=== PATIENT | female | born 2000 | race Caucasian/White ===

== ENCOUNTER 2019-05-07 15:08 | Emergency (ER) | payer OTHER ==
[~2019-05-07] VITALS: Ht 167.6 cm; Wt 72.6 kg
--- OUTSIDE RECORDS SUMMARY | 2019-05-07 15:10 | XMS REPORT ---
[facility] Address Unknown Phone Unavailable Care Team Providers Care Compressor Station Operator Name Role Phone Deepali GOYAL Unavailable Unavailable Payers Payer Name Policy Type Policy Number Effective Date Expiration Date Problems This patient has no known problems. Allergies, Adverse Reactions, Alerts Allergy Name Allergy Type Status Severity Reaction(s) Onset Date Inactive Date Treating Clinician Comments Penicillins DA Active U 2019-02-16 00:00:00 Penicillins DA Active U 2018-11-03 00:00:00 No Known Allergies DA Active U 2018-11-02 00:00:00 Medications This patient has no known medications. Encounters Start Date/Time End Date/Time Encounter Type Admission Type Attending [facility] Facility Care Department Encounter ID 2016-12-17 06:28:00 Inpatient 1 ROE GOYAL [facility] [id number] Results Test Description Test Time Test Comments Text Results Atomic Results Result Comments [facility] 2018-11-07 12:19:00 RUN DATE: 11/07/18 [place] - Lab PAGE 1 RUN TIME: 1219 Specimen Inquiry RUN USER: INTERFACE PATIENT: HEMAL GATES LOC: [place] U #: [id number] AGE/SX: 18/F ROOM: RE11/04/18REG DR: Nicolás Mills MD : 99 BED: DIS: STATUS: [facility] TLOC: SPEC #: [id number] RECD: 11/04/18 STATUS: NISHI RE #: [id number] ROXANNE: 11/04/18- DR: Nicolás Mills MD ENTERED: 11/04/18 SP TYPE: OTHR DR: ORDERED: GROSS PROCEDURES: GROSS (11/07/18945) TISSUES: PRODUCTS OF CONCEPTION, NOS CLINICAL HISTORY COLLECTION DATE: 11/04/18 MISSED AB FINAL DIAGNOSIS Products of conception, D C suction: IMMATURE CHORIONIC VILLI, DECIDUALIZED TISSUE AND SCANT MYOMETRIAL TISSUE CONSISTENT WITH PRODUCTS OF CONCEPTION NO ATYPICAL TROPHOBLASTIC PROLIFERATION OR MALIGNANCY IDENTIFIED FA/sm D 06262 MACROSCOPIC The specimen is received in formalin labeled with the patient's name, "products of conception" and consists of a clear plastic suction trap. The specimen consists of multiple fragments of red-pink and red-nelson spongy tissue measuring 14.0 x 7.0 by up to 1.7 cm in aggregate. No hydropic villi or discrete parts are identified. [employer] C[employer]ian tissue is submitted in a single cassette. GROSS PERFORMED AT [facility] [address] [place] [phone] CONTINUED ON NEXT PAGE ---RUN DATE: 11/07/18 [facility] PAGE 2 RUN TIME: 1219 Specimen Inquiry RUN USER: INTERFACE SPEC #: [id number] PATIENT: HEMAL GATES #[id number] (Continued) MICROSCOPIC All of the stains, including any controls performed, sandra barron appropriately. MICROSCOPIC PERFORMED AT [facility] [address] [place] [address] [phone] PERFORMING SITE Diagnosis performed at: [facility], [place] [address] [place] [address] Signed SIGNATURE ON FILE Santana Houston MD 11/07/18 1219 END OF REPORT HCG SERUM BETA 2018-11-03 13:18:00 HCG SERUM BETA (test code=HCG) 9826.0 mIU/mL 0-3 Interfering substances present in the serum of somepatients may cause a false-positive result in this assay.Questionable elevations in serum hCG should be confirmedwith a urine hCG. Suspected Trophoblastic Neoplasms shouldnot be diagnosed based on serun hCG/beta hCG alone. Theymust be confirmed by clinical history and tissue diagnosis.INTERPRETATION:B-HCG LEVELS <5 SHOULD BE CONSIDERED "NEGATIVE." *WHEN BODERLINE RESULTS ARE ENCOUNTERED,PATIENT SAMPLESSHOULD BE REDRAWN 48 HOURS. 0-1 WEEKS AFTER CONCEPTION 5-50 MIU/ML1-2 WEEKS AFTER CONCEPTION 50-500 MIU/ML2-3 WEEKS AFTER CONCEPTION 100 -5,000 MIU/ML3-4 WEEKS AFTER CONCEPTION 500-10,000 MIU/ML4-5 WEEKS AFTER CONCEPTION 1000 -50,000 MIU/ML5-6 WEEKS AFTER CONCEPTION 10,000-100,000 MIU/ML6-8 WEEKS AFTER CONCEPTION 15,000- 200,000 MIU/ML2-3 MONTHS AFTER CONCEPTION 10,000-100,000 MIU/ML URINALYSIS [id number] 12:34:00* Test Item Value Reference Range Comments UA COLOR (test code=COLU) YELLOW YELLOW UA APPEARANCE (test code=APPU) Cloudy CLEAR UA GLUCOSE DIPSTICK (test code=DGLUU) NEGATIVE mg/dL NEGATIVE UA BILIRUBIN DIPSTICK (test code=BILU) NEGATIVE mg/dL NEGATIVE UA KETONE DIPSTICK (test code=KETU) NEGATIVE mg/dL NEGATIVE UA SPECIFIC GRAVITY (test code=SGU) 1.022 1.001-1.035 UA BLOOD DIPSTICK (test code=MIRTA) Negative mg/dL NEGATIVE UA PH DIPSTICK (test code=PATRICE) 6.5 5.0-8.0 UA PROTEIN DIPSTICK (test code=PROU) 20 (Trace) mg/dL NEGATIVE UA UROBILINIOGEN DIPSTICK (test code=URO) Normal mg/dL NEGATIVE UA NITRITE DIPSTICK (test code=RAMA) NEGATIVE NEGATIVE UA LEUKOCYTE ESTERASE W REFLEX (test code=LEUUR) 500 Elsa/uL (3+) Elsa/uL NEGATIVE UA WBC (test code=WBCU) 11-20 per HPF 0-5 UA RBC (test code=RBCU) 3-5 per HPF 0-5 UA EPITHELIAL CELLS (test code=EPIU) Many (>10/hpf) per HPF Few UA BACTERIA (test code=BACU) FEW per HPF NONE UA MUCUS (test code=MUCU) FEW per LPF NONE-FEW URINALYSIS [id number] 12:33:00* Test Item Value Reference Range Comments UA COLOR (test code=COLU) YELLOW YELLOW UA APPEARANCE (test code=APPU) Cloudy CLEAR UA GLUCOSE DIPSTICK (test code=DGLUU) NEGATIVE mg/dL NEGATIVE UA BILIRUBIN DIPSTICK (test code=BILU) NEGATIVE mg/dL NEGATIVE UA KETONE DIPSTICK (test code=KETU) NEGATIVE mg/dL NEGATIVE UA SPECIFIC GRAVITY (test code=SGU) 1.022 1.001-1.035 UA BLOOD DIPSTICK (test code=MIRTA) Negative mg/dL NEGATIVE UA PH DIPSTICK (test code=PATRICE) 6.5 5.0-8.0 UA PROTEIN DIPSTICK (test code=PROU) 20 (Trace) mg/dL NEGATIVE UA UROBILINIOGEN DIPSTICK (test code=URO) Normal mg/dL NEGATIVE UA NITRITE DIPSTICK (test code=RAMA) NEGATIVE NEGATIVE UA LEUKOCYTE ESTERASE W REFLEX (test code=LEUUR) 500 Elsa/uL (3+) Elsa/uL NEGATIVE UA WBC (test code=WBCU) per HPF 0-5 UA RBC (test code=RBCU) per HPF 0-5 UA EPITHELIAL CELLS (test code=EPIU) per HPF Few UA BACTERIA (test code=BACU) per HPF NONE URINALYSIS [id number] 12:33:00* Test Item Value Reference Range Comments UA COLOR (test code=COLU) YELLOW YELLOW UA APPEARANCE (test code=APPU) Cloudy CLEAR UA GLUCOSE DIPSTICK (test code=DGLUU) NEGATIVE mg/dL NEGATIVE UA BILIRUBIN DIPSTICK (test code=BILU) NEGATIVE mg/dL NEGATIVE UA KETONE DIPSTICK (test code=KETU) NEGATIVE mg/dL NEGATIVE UA SPECIFIC GRAVITY (test code=SGU) 1.022 1.001-1.035 UA BLOOD DIPSTICK (test code=MIRTA) Negative mg/dL NEGATIVE UA PH DIPSTICK (test code=PATRICE) 6.5 5.0-8.0 UA PROTEIN DIPSTICK (test code=PROU) 20 (Trace) mg/dL NEGATIVE UA UROBILINIOGEN DIPSTICK (test code=URO) Normal mg/dL NEGATIVE UA NITRITE DIPSTICK (test code=RAMA) NEGATIVE NEGATIVE UA LEUKOCYTE ESTERASE W REFLEX (test code=LEUUR) 500 Elsa/uL (3+) Elsa/uL NEGATIVE UA WBC (test code=WBCU) per HPF 0-5 UA RBC (test code=RBCU) per HPF 0-5 UA EPITHELIAL CELLS (test code=EPIU) per HPF Few UA BACTERIA (test code=BACU) per HPF NONE CBC W/AUTO [id number] 12:29:00* Test Item Value Reference Range Comments WHITE BLOOD CELL (test code=WBC) 6.6 K/mm3 4.5-12.5 RED BLOOD CELL (test code=RBC) 5.18 mill/mm3 3.7-5.2 HEMOGLOBIN (test code=HGB) 12.6 gram/dL 11.5-15.5 HEMATOCRIT (test code=HCT) 39.8 % 36.0-46.0 MEAN CELL VOLUME (test code=MCV) 76.8 fL 80-98 MEAN CELL HGB (test code=MCH) 24.3 picogram 27.0-33.0 MEAN CELL HGB CONCETRATION (test code=MCHC) 31.7 gram/dL 33.0-36.0 RED CELL DISTRIBUTION WIDTH (test code=RDW) 15.7 % 11.6-16.2 RED CELL DISTRIBUTION WIDTH SD (test code=RDW-SD) 43.7 fL 37.0-51.0 PLATELET COUNT (test code=PLT) 162 K/mm3 150-450 MEAN PLATELET VOLUME (test code=MPV) 10.2 fL 6.7-11.0 NEUTROPHIL % (test code=NT%) 70.3 % 39.0-69.0 IMMATURE GRANULOCYTE % (test code=IG%) 1.5 % 0.0-5.0 LYMPHOCYTE % (test code=LY%) 16.0 % 25.0-55.0 MONOCYTE % (test code=MO%) 11.9 % 0.0-10.0 EOSINOPHIL % (test code=EO%) 0.0 % 0.0-5.0 BASOPHIL % (test code=BA%) 0.3 % 0.0-1.0 NUCLEATED RBC % (test code=NRBC%) 0.0 % 0-0 NEUTROPHIL # (test code=NT#) 4.61 K/mm3 1.8-7.7 IMMATURE GRANULOCYTE # (test code=IG#) 0.10 x10 3/uL 0-0.03 LYMPHOCYTE # (test code=LY#) 1.05 K/mm3 1.0-5.0 MONOCYTE # (test code=MO#) 0.78 K/mm3 0-0.8 EOSINOPHIL # (test code=EO#) 0.00 K/mm3 0.0-0.5 BASOPHIL # (test code=BA#) 0.02 K/mm3 0.0-0.2 NUCLEATED RBC # (test code=NRBC#) 0.00 K/mm3 0.0-0.1 MANUAL DIFF REQUIRED (test code=MDIFF) NO CBC W/AUTO [id number] 12:26:00* Test Item Value Reference Range Comments WHITE BLOOD CELL (test code=WBC) K/mm3 4.5-12.5 RED BLOOD CELL (test code=RBC) mill/mm3 3.7-5.2 HEMOGLOBIN (test code=HGB) 12.6 gram/dL 11.5-15.5 HEMATOCRIT (test code=HCT) 39.8 % 36.0-46.0 MEAN CELL VOLUME (test code=MCV) fL 80-98 MEAN CELL HGB (test code=MCH) picogram 27.0-33.0 MEAN CELL HGB CONCETRATION (test code=MCHC) gram/dL 33.0-36.0 RED CELL DISTRIBUTION WIDTH (test code=RDW) % 11.6-16.2 RED CELL DISTRIBUTION WIDTH SD (test code=RDW-SD) fL 37.0-51.0 PLATELET COUNT (test code=PLT) K/mm3 150-450 MEAN PLATELET VOLUME (test code=MPV) fL 6.7-11.0 NEUTROPHIL % (test code=NT%) % 39.0-69.0 IMMATURE GRANULOCYTE % (test code=IG%) % 0.0-5.0 LYMPHOCYTE % (test code=LY%) % 25.0-55.0 MONOCYTE % (test code=MO%) % 0.0-10.0 EOSINOPHIL % (test code=EO%) % 0.0-5.0 BASOPHIL % (test code=BA%) % 0.0-1.0 NEUTROPHIL # (test code=NT#) K/mm3 1.8-7.7 LYMPHOCYTE # (test code=LY#) K/mm3 1.0-5.0 MONOCYTE # (test code=MO#) K/mm3 0-0.8 EOSINOPHIL # (test code=EO#) K/mm3 0.0-0.5 BASOPHIL # (test code=BA#) K/mm3 0.0-0.2 - DUP AB/PEL/SC [id number] 19:22:00 Name: HEMAL GATES [facility] : 2000 Age/S: 18 / F [address] [facility] Unit #: [id number] Loc: [place] [address] Phys: Cailin Gomez MD Acct: [id number] Dis Date: Status: REG ER PHONE #: [phone] Exam Date: 11/02/2018 191 FAX #: [phone] Reason: PAIN FEVER EXAMS: CPT CODE: [id number] DUP AB/PEL/SC COMP 82950 EXAM: First trimester ultrasound, transvaginal ultrasound and duplex sonography; INFORMATION: Pelvic pain, fever; TECHNIQUE AND FINDINGS: Transabdominal and transvaginal grayscale imaging was combined with color Doppler sonography and spectral analysis. The uterus measures 11.7 x 8.1 x 8.3 cm. It contains a gestational sac with a mean diameter of 4 cm. The crown-rump length of an embryo is 2 cm. This corresponds with a sonographic gestational age of 9 weeks and 0 days. However, no cardiac activity is seen. There is a small subchorionic bleed, measuring 8 x 4 x 7 mm. Both ovaries are of normal size and shape and with normal flow pattern on Doppler exam. The right ovary measures 3 x 1.8 x 1.7 cm. The left ovary measures 2.6 x 1.5 x 1.8 cm. IMPRESSION: 1. Absence of cardiac activity indicates demise of an early intrauterine with a gestational age of 9 weeks. 2. No adnexal lesions. at 1922 Reported and signed by: Karel Huerta M.D. CC: Nicolás Mills MD; Cailin Gomez MD Technologist: Toña Joyner RDMS Trnutb Date/Time: 11/02/2018 (1921) t.[email or web address] Orig Print D/T: S: 11/02/2018 (1924) Probe: PAGE 1 Signed Report - US PREG UT [id number] 19:22:00 Name: HEMAL GATES [facility] : 2000 Age/S: 18 / F [address] [facility] Unit #: [id number] Loc: [place] [address] Phys: Cailin Gomez MD Acct: [id number] Dis Date: Status: REG ER PHONE #: [phone] Exam Date: 11/02/20181917 FAX #: [phone] Reason: PAIN FEVER EXAMS: CPT CODE: [id number] US PREG UT TRANSVAGINAL 41479 EXAM: First trimester ultrasound, transvaginal ultrasound and duplex sonography; INFORMATION: Pelvic pain, fever; TECHNIQUE AND FINDINGS: Transabdominal and transvaginal grayscale imaging was combined with color Doppler sonography and spectral analysis. The uterus measures 11.7 x 8.1 x 8.3 cm. It contains a gestational sac with a mean diameter of 4 cm. The crown-rump length of an embryo is 2 cm. This corresponds with a sonographic gestational age of 9 weeks and 0 days. However, no cardiac activity is seen. There is a small subchorionic bleed, measuring 8 x 4 x 7 mm. Both ovaries are of normal size and shape and with normal flow pattern on Doppler exam. The right ovary measures 3 x 1.8 x 1.7 cm. The left ovary measures 2.6 x 1.5 x 1.8 cm. IMPRESSION: 1. Absence of cardiac activity indicates demise of an early intrauterine with a gestational age of 9 weeks. 2. No adnexal lesions. at 1922 Reported and signed by: Karel Huerta M.D. CC: Nicolás Mills MD; Cailin Gomez MD Technologist: Toña Joyner RDMS Trnutb Date/Time: 11/02/2018 (1921) [email or web address] Orig Print D/T: S: 11/02/2018 (1924) Probe: [id number] PAGE 1 Signed Report - US PREG 1ST TRIMTR 2018-11-02 19:22:00 Name: HEMAL GATES [facility] : 2000 Age/S: 18 / F [address] [facility] Unit #: [id number] Loc: [place] [address] Phys: Cailin Gomez MD Acct: [id number] Dis Date: Status: REG ER PHONE #: [phone] Exam Date: 11/02/20181917 FAX #: [phone] Reason: pelvis pain, fever EXAMS: CPT CODE: [id number] US PREG 1ST TRIMTR 13623 EXAM: First trimester ultrasound, transvaginal ultrasound and duplex sonography; INFORMATION: Pelvic pain, fever; TECHNIQUE AND FINDINGS: Transabdominal and transvaginal grayscale imaging was combined with color Doppler sonography and spectral analysis. The uterus measures 11.7 x 8.1 x 8.3 cm. It contains a gestational sac with a mean diameter of 4 cm. The crown-rump length of an embryo is 2 cm. This corresponds with a sonographic gestational age of 9 weeks and 0 days. However, no cardiac activity is seen. There is a small subchorionic bleed, measuring 8 x 4 x 7 mm. Both ovaries are of normal size and shape and with normal flow pattern on Doppler exam. The right ovary measures 3 x 1.8 x 1.7 cm. The left ovary measures 2.6 x 1.5 x 1.8 cm. IMPRESSION: 1. Absence of cardiac activity indicates demise of an early intrauterine with a gestational age of 9 weeks. 2. No adnexal lesions. at 1922 Reported and signed by: Karel Huerta M.D. CC: Cailin Gomez MD Technologist: Toña Joyner RDMS Trnutb Date/Time: 11/02/2018 (1921) [email or web address] Orig Print D/T: S: 11/02/2018 (1924) Probe: PAGE 1 Signed Report - XR CHEST 1 V 2018-11-02 19:14:00 FAX: Cailin García [phone] Ola: St: REG Name: HEMAL YEN [facility] : [birth year] Age/S: 18/F [address] [facility] Unit #: [id number] Loc: [place] [address] Phys: Cailin Gomez MD Acct: [id number] Dis Date: Status: REG ER PHONE #: [phone] Exam Date: 11/02/2018 183 FAX #: [phone] Reason: CODE SEPSIS EXAMS: CPT CODE: [id number] XR CHEST 1 V 80116 EXAM: Chest X-ray, 1 view; CLINICAL HISTORY: Fever, code sepsis; FINDINGS: The lungs are clear, no infiltrates, no edema; no effusions; no pneumothorax; normal cardiomediastinal silhouette. IMPRESSION: Normal chest x-ray. at 191 Reported and signed by: Karel Huerta M.D. CC: Cailin Gomez MD Tech nologist: Juanito Tovar RT(R) Trnscrd Date/Ti me/By: 11/02/2018 (1913) : By: JenniferGRW Orig Print D/T: S: 11/02/2018 (1916) PAGE 1 Signed Report HCG SERUM [id number] 18:38:00* Test Item Value Reference Range Comments HCG SERUM BETA (test code=HCG) 77278.0 mIU/mL 0-3 Interfering substances present in the serum of somepatients may cause a false-positive result in this assay.Questionable elevations in serum hCG should be confirmedwith a urine hCG. Suspected Trophoblastic Neoplasms shouldnot be diagnosed based on serun hCG/beta hCG alone. Theymust be confirmed by clinical history and tissue diagnosis.INTERPRETATION:B-HCG LEVELS <5 SHOULD BE CONSIDERED "NEGATIVE." *WHEN BODERLINE RESULTS ARE ENCOUNTERED,PATIENT SAMPLESSHOULD BE REDRAWN 48 HOURS. 0-1 WEEKS AFTER CONCEPTION 5-50 MIU/ML1-2 WEEKS AFTER CONCEPTION 50-500 MIU/ML2-3 WEEKS AFTER CONCEPTION 100 -5,000 MIU/ML3-4 WEEKS AFTER CONCEPTION 500-10,000 MIU/ML4-5 WEEKS AFTER CONCEPTION 1000 -50,000 MIU/ML5-6 WEEKS AFTER CONCEPTION 10,000-100,000 MIU/ML6-8 WEEKS AFTER CONCEPTION 15,000- 200,000 MIU/ML2-3 MONTHS AFTER CONCEPTION 10,000-100,000 MIU/ML BASIC METABOLIC [id number] 18:28:00* Test Item Value Reference Range Comments SODIUM (test code=NA) 136 mmol/L 136-145 POTASSIUM (test code=K) 3.3 mmol/L 3.5-5.1 CHLORIDE (test code=CL) 105.0 mmol/L 98-107 CARBON DIOXIDE (test code=CO2) 21.0 mmol/L 21-32 ANION GAP (test code=GAP) 13.3 10-20 GLUCOSE (test code=GLU) 95 mg/dL 74-106 BLOOD UREA NITROGEN (test code=BUN) 6 mg/dL 7-18 GLOMERULAR FILTRATION RATE (test code=GFR) > 60 mL/min >=60 Estimated GFR by using Modified MDRD formula.Chronic kidney disease is defined as either kidney damageor GFR <60 mL/min/1.73 m2 for >3 months. CREATININE (test code=CREAT) 0.70 mg/dL 0.55-1.02 Note change in reference range due to change in reagent. BUN/CREATININE RATIO (test code=BUN/CREA) 9.0 10-20 CALCIUM (test code=CA) 8.4 mg/dL 8.5-10.1 HEPATIC FUNCTION [id number] 18:28:00* Test Item Value Reference Range Comments TOTAL PROTEIN (test code=PROT) 7.1 gram/dL 6.4-8.2 ALBUMIN (test code=ALB) 3.7 g/dL 3.4-5.0 GLOBULIN (test code=GLOB) 3.4 gram/dL 2.7-4.2 ALBUMIN/GLOBULIN RATIO (test code=A/G) 1.1 0.75-1.50 BILIRUBIN TOTAL (test code=BILT) 0.40 mg/dL 0.0-1.0 BILIRUBIN DIRECT (test code=BILD) 0.11 mg/dL 0.0-0.20 SGOT/AST (test code=AST) 12 IUnit/L 15-37 SGPT/ALT (test code=ALT) 17 IUnit/L 12-78 ALKALINE PHOSPHATASE TOTAL (test code=ALKP) 60 IUnit/L 37-107 [id number] 18:28:00* Test Item Value Reference Range Comments LIPASE (test code=LIP) 49 U/L 73.0-393.0 [id number] 18:28:00* Test Item Value Reference Range Comments TROPONIN-I (test code=TROPI) <0.015 ng/mL 0-0.045 BASIC METABOLIC [id number] 18:21:00* Test Item Value Reference Range Comments SODIUM (test code=NA) 136 mmol/L 136-145 POTASSIUM (test code=K) 3.3 mmol/L 3.5-5.1 CHLORIDE (test code=CL) 105.0 mmol/L 98-107 CARBON DIOXIDE (test code=CO2) mmol/L 21-32 ANION GAP (test code=GAP) 10-20 GLUCOSE (test code=GLU) mg/dL 74-106 BLOOD UREA NITROGEN (test code=BUN) mg/dL 7-18 GLOMERULAR FILTRATION RATE (test code=GFR) mL/min >=60 CREATININE (test code=CREAT) mg/dL 0.55-1.02 BUN/CREATININE RATIO (test code=BUN/CREA) 10-20 CALCIUM (test code=CA) mg/dL 8.5-10.1 HEPATIC FUNCTION [id number] 18:21:00* Test Item Value Reference Range Comments TOTAL PROTEIN (test code=PROT) gram/dL 6.4-8.2 ALBUMIN (test code=ALB) g/dL 3.4-5.0 GLOBULIN (test code=GLOB) gram/dL 2.7-4.2 ALBUMIN/GLOBULIN RATIO (test code=A/G) 0.75-1.50 BILIRUBIN TOTAL (test code=BILT) mg/dL 0.0-1.0 BILIRUBIN DIRECT (test code=BILD) mg/dL 0.0-0.20 SGOT/AST (test code=AST) IUnit/L 15-37 SGPT/ALT (test code=ALT) IUnit/L 12-78 ALKALINE PHOSPHATASE TOTAL (test code=ALKP) IUnit/L 37-107 [id number] 18:21:00* Test Item Value Reference Range Comments LIPASE (test code=LIP) U/L 73.0-393.0 [id number] 18:21:00* Test Item Value Reference Range Comments TROPONIN-I (test code=TROPI) ng/mL 0-0.045 LACTIC [id number] 18:21:00* Test Item Value Reference Range Comments LACTIC ACID (test code=LACT) 0.9 mmol/L 0.4-1.9 URINALYSIS [id number] 18:07:00* Test Item Value Reference Range Comments UA COLOR (test code=COLU) Light-Yellow YELLOW UA APPEARANCE (test code=APPU) CLEAR CLEAR UA GLUCOSE DIPSTICK (test code=DGLUU) NEGATIVE mg/dL NEGATIVE UA BILIRUBIN DIPSTICK (test code=BILU) NEGATIVE mg/dL NEGATIVE UA KETONE DIPSTICK (test code=KETU) 10 (1+) mg/dL NEGATIVE UA SPECIFIC GRAVITY (test code=SGU) 1.017 1.001-1.035 UA BLOOD DIPSTICK (test code=MIRTA) Negative mg/dL NEGATIVE UA PH DIPSTICK (test code=PATRICE) 7.0 5.0-8.0 UA PROTEIN DIPSTICK (test code=PROU) NEGATIVE mg/dL NEGATIVE UA UROBILINIOGEN DIPSTICK (test code=URO) Normal mg/dL NEGATIVE UA NITRITE DIPSTICK (test code=RAMA) NEGATIVE NEGATIVE UA LEUKOCYTE ESTERASE W REFLEX (test code=LEUUR) 500 Elsa/uL (3+) Elsa/uL NEGATIVE UA WBC (test code=WBCU) 11-20 per HPF 0-5 UA RBC (test code=RBCU) 0-2 #/HPF 0-5 UA EPITHELIAL CELLS (test code=EPIU) FEW per HPF FEW UA BACTERIA (test code=BACU) FEW #/HPF NONE UA MUCUS (test code=MUCU) FEW #/LPF FEW Urine Source? Clean CatchCBC W/AUTO [id number] 18:05:00* Test Item Value Reference Range Comments WHITE BLOOD CELL (test code=WBC) 6.1 K/mm3 4.5-12.5 RED BLOOD CELL (test code=RBC) 5.00 mill/mm3 3.7-5.2 HEMOGLOBIN (test code=HGB) 12.3 gram/dL 11.5-15.5 HEMATOCRIT (test code=HCT) 38.2 % 36.0-46.0 MEAN CELL VOLUME (test code=MCV) 76.4 fL 80-98 MEAN CELL HGB (test code=MCH) 24.6 picogram 27.0-33.0 MEAN CELL HGB CONCETRATION (test code=MCHC) 32.2 gram/dL 33.0-36.0 RED CELL DISTRIBUTION WIDTH (test code=RDW) 15.5 % 11.6-16.2 RED CELL DISTRIBUTION WIDTH SD (test code=RDW-SD) 42.4 fL 37.0-51.0 PLATELET COUNT (test code=PLT) 157 K/mm3 150-450 MEAN PLATELET VOLUME (test code=MPV) 10.3 fL 6.7-11.0 NEUTROPHIL % (test code=NT%) 80.5 % 39.0-69.0 IMMATURE GRANULOCYTE % (test code=IG%) 1.0 % 0.0-5.0 LYMPHOCYTE % (test code=LY%) 9.1 % 25.0-55.0 MONOCYTE % (test code=MO%) 9.0 % 0.0-10.0 EOSINOPHIL % (test code=EO%) 0.2 % 0.0-5.0 BASOPHIL % (test code=BA%) 0.2 % 0.0-1.0 NUCLEATED RBC % (test code=NRBC%) 0.0 % 0-0 NEUTROPHIL # (test code=NT#) 4.95 K/mm3 1.8-7.7 IMMATURE GRANULOCYTE # (test code=IG#) 0.06 x10 3/uL 0-0.03 LYMPHOCYTE # (test code=LY#) 0.56 K/mm3 1.0-5.0 MONOCYTE # (test code=MO#) 0.55 K/mm3 0-0.8 EOSINOPHIL # (test code=EO#) 0.01 K/mm3 0.0-0.5 BASOPHIL # (test code=BA#) 0.01 K/mm3 0.0-0.2 NUCLEATED RBC # (test code=NRBC#) 0.00 K/mm3 0.0-0.1 URINALYSIS [id number] 18:05:00* Test Item Value Reference Range Comments UA COLOR (test code=COLU) Light-Yellow YELLOW UA APPEARANCE (test code=APPU) CLEAR CLEAR UA GLUCOSE DIPSTICK (test code=DGLUU) NEGATIVE mg/dL NEGATIVE UA BILIRUBIN DIPSTICK (test code=BILU) NEGATIVE mg/dL NEGATIVE UA KETONE DIPSTICK (test code=KETU) 10 (1+) mg/dL NEGATIVE UA SPECIFIC GRAVITY (test code=SGU) 1.017 1.001-1.035 UA BLOOD DIPSTICK (test code=MIRTA) Negative mg/dL NEGATIVE UA PH DIPSTICK (test code=PATRICE) 7.0 5.0-8.0 UA PROTEIN DIPSTICK (test code=PROU) NEGATIVE mg/dL NEGATIVE UA UROBILINIOGEN DIPSTICK (test code=URO) Normal mg/dL NEGATIVE UA NITRITE DIPSTICK (test code=RAMA) NEGATIVE NEGATIVE UA LEUKOCYTE ESTERASE W REFLEX (test code=LEUUR) 500 Elsa/uL (3+) Elsa/uL NEGATIVE UA WBC (test code=WBCU) per HPF 0-5 UA RBC (test code=RBCU) per HPF 0-5 UA EPITHELIAL CELLS (test code=EPIU) per HPF Few UA BACTERIA (test code=BACU) per HPF NONE Urine Source? Clean CatchCBC W/AUTO [id number] 18:03:00* Test Item Value Reference Range Comments WHITE BLOOD CELL (test code=WBC) K/mm3 4.5-12.5 RED BLOOD CELL (test code=RBC) mill/mm3 3.7-5.2 HEMOGLOBIN (test code=HGB) 12.3 gram/dL 11.5-15.5 HEMATOCRIT (test code=HCT) 38.2 % 36.0-46.0 MEAN CELL VOLUME (test code=MCV) fL 80-98 MEAN CELL HGB (test code=MCH) picogram 27.0-33.0 MEAN CELL HGB CONCETRATION (test code=MCHC) gram/dL 33.0-36.0 RED CELL DISTRIBUTION WIDTH (test code=RDW) % 11.6-16.2 RED CELL DISTRIBUTION WIDTH SD (test code=RDW-SD) fL 37.0-51.0 PLATELET COUNT (test code=PLT) K/mm3 150-450 MEAN PLATELET VOLUME (test code=MPV) fL 6.7-11.0 NEUTROPHIL % (test code=NT%) % 39.0-69.0 IMMATURE GRANULOCYTE % (test code=IG%) % 0.0-5.0 LYMPHOCYTE % (test code=LY%) % 25.0-55.0 MONOCYTE % (test code=MO%) % 0.0-10.0 EOSINOPHIL % (test code=EO%) % 0.0-5.0 BASOPHIL % (test code=BA%) % 0.0-1.0 NEUTROPHIL # (test code=NT#) K/mm3 1.8-7.7 LYMPHOCYTE # (test code=LY#) K/mm3 1.0-5.0 MONOCYTE # (test code=MO#) K/mm3 0-0.8 EOSINOPHIL # (test code=EO#) K/mm3 0.0-0.5 BASOPHIL # (test code=BA#) K/mm3 0.0-0.2 POC LACTIC [id number] 17:44:00* Test Item Value Reference Range Comments POC LACTIC ACID (test code=POCLAC) 0.93 MMOL/L 0.4-2.2 [id number] 22:14:00* Test Item Value Reference Range Comments GLUCOSE (test code=URGLU) NEGATIVE MG/DL NEG-100 BILIRUBN (test code=URBILI) NEGATIVE NEGATIVE KETONE (test code=URKET) NEGATIVE MG/DL NEGATIVE BLOOD (test code=URBLD) NEGATIVE UR PH (test code=URPH) 6.0 5.0-7.5 PROTEIN (test code=URPRO) NEGATIVE MG/DL NEGATIVE NITRITES (test code=URNIT) NEGATIVE NEGATIVE UROBILINGEN (test code=URURO) 0.2 EU/DL 0.2-1.0 LEUKOCYT (test code=URLEU) SMALL NEGATIVE UA COLOR (test code=UA COLOR) YELLOW YELLOW CLARITY (test code=CLARITY) CLEAR CLEAR SP GRAV (test code=URSPGRAV) 1.029 1.000-1.025 UAMICRO (test code=UAMICRO) YES WBC (test code=URWBC) 28 /HPF 0-5 RBC (test code=URRBC) 1 /HPF 0-2 CASTS (test code=CAST) 0 /LPF 0-3 UR EPI (test code=EPI) >50 /LPF BACTERIA (test code=BACTERIA) SMALL NONE B-HCG QUAL (KIT)2017-04-21 22:11:00* Test Item Value Reference Range Comments HCGQUAL (test code=HCGQUAL) NEGATIVE NEGATIVE URINE: NEGATIVE=< 20 mIU/ML; POSITIVE=>/=20 mIU/ML SERUM: NEGATIVE=< 10 mIU/ML; POSITIVE=>/=10 mIU/ML SOURCE (test code=SOURCE) URINE HCG INTERNAL POSITIVE CNTRL (test code=HCGIPC) PASS PASS HCG LOT # (test code=UHCGLOT) [id number] HCG EXPIRATION DATE (test code=UHCGEXP) 12-27 US LIMITED ABD [id number] 07:15:[address] [id number] IMAGING REPORTPatient Name: Serafin GATES of Service: [id number]: 17 Sex: F Order #: [id number] Room: ERSDOB: 2000 X-Ray Number: [id number] Record Number: [id number] Hospital Number: [id number] Physician: ASHLIE ALVAREZOrdering Physician: Joey AJ upper quadrant ultrasound.History: Pain.Technique: Transabdominal ultrasound images of the right upper quadrantwere reviewed.Findings:Ultrasound images demonstrate no abnormalities involving the liver. Thegallbladder is unremarkable. CBD measures 4.0 mm. Portal vein abdominalaorta IVC and pancreas appear normal. The right kidney is normal at 10 .4 x4.3 x 4.9 cm.ImpressionUnremarkable right upper quadrant ultrasound.Electron ically Signed By: Narayan Jorge M.D., 09/10/2016 7:12 AMLegally authenticated by SHELIA Diamond 2016-09-10 07:12:53CHEST 1 VIEW [id number] 14:18:[address] [id number] TIC IMAGING REPORTPatient Name: Serafin GATES of Service: [id number]: 16 Sex: F Order #: [id number] Room: QERDOB: 2000 X-Ray Number: [id number] Record Number: [id number] Hospital Number: [id number] Phys ician: ALYSHA GONG -Ordering Physician: Aldo GRAHAM one view 2:12 P MHistory: Fever and cough, chills.Findings:Heart size is normal.There is no foca l lung consolidation.There is no pleural effusion or pneumothorax.Impression:No acute cardiopulmonary process.Electronically Signed By: Claude Calvin M.D., 2:15 PMLegally authenticated by ROSEANN CLARKE 2016-05-24 14:15:20US OB < 14 [id number] 19:02:[address] [id number] IMAGING REPORTPatient Name: Serafin GATES of Service: [id number]: 16 Sex: F Order #: [id number] [facility] 2000 X-Ray Number: [id number] Record Number: [id number] Hospital Number: [id number] Physician: MARIZA SONGOrdering Physician: Jim SONG OB less than 14 weeks, 05/08/2016History: female with abdominal trauma/injury.Technique: Transvesical images are performed.Comparison: Pelvic ultrasound dated 12/31/2015.Findings: Bladder is essentially empty. Uterus is anteverted measuring 6.3cm in length. There is a small 4.6 x 4.4 x 4.8 mm anechoic fluid collectionwithin the superior uterine cavity. No discrete yolk sac, pole norfetal cardiac motion is evident. Uterus is otherwise unremarkable. Neitherovary is identified. No adnexal masses are appreciated. There is no pelvicfree fluid.Impression:1. Limited study due to empty bladder and lack of transvaginal scan aswell.2. No definite acute abnormality detected.3. Nonspecific approximate 5 mm uterine cavity fluid col lection. Correlatewith serial quantitative beta levels to evaluate for any poten tial ectopicpregnancy with gestational sac versus early IUP or blighted ovum.4. Nonvisualized ovaries.Electronically Signed By: Jarett Coburn M.D., 05/08/2016 7:00 PMLchrystal authenticated by LEYLA JORGE 2016-05-08 19:00:12
[2019-05-07 16:00] LABS: CLARITY,URINE HAZY (CLEAR); COLOR,URINE YELLOW (YELLOW); LEUKOCYTE ESTERASE ,URINE NEGATIVE (NEGATIVE)
[2019-05-07 16:01] LABS: BILIRUBIN,URINE NEGATIVE (NEGATIVE); KETONES,URINE NEGATIVE (NEGATIVE); NITRITE,URINE NEGATIVE (NEGATIVE); PROTEIN,URINE DIPSTICK NEGATIVE (NEGATIVE); URINE UROBILINOGEN 0.2 mg/dL (0.2 - 1)
[2019-05-07 16:02] LABS: PREGNANCY TEST, URINE POSITIVE (NEGATIVE)
[2019-05-07 16:07] LABS: BACTERIA,URINE FEW /HPF; EPITHELIAL CELLS,URINE MODERATE /LPF; RBC,URINE 0-5 /HPF (0-5); WBC,URINE (MAN) 0-5 /HPF (0-5)
--- NOTE | 2019-05-07 16:48 | NUR ---
Pt signed AMA form, she reports she will f/u with her OBgyn. Pt ambulated to exit without difficulty.
--- NOTE | 2019-05-07 18:09 | NUR ---
pt stated she already called for ride home and wanted to leave; pt advised if she left she would be leaving ama but it would be best if she stayed to get all testing necessary; pt states she just wants to go home and will come back another time; made aware and went to speak to pt letting her know she should stay to be evaluated but pt continues to state she wants to go home md makes pt aware of risk/benefits of leaving/staying up to and including pt insists she wants to go home
== END 2019-05-07 18:52 | disposition left against medical advice (07) ==
LOC: ER 15:08
DX: O20.9 Hemorrhage in early pregnancy, unspecified (principal); R10.2 Pelvic and perineal pain; Z88.0 Allergy status to penicillin
CPT/HCPCS: 81001; 81025; 87086; 99282